=== PATIENT | male | born 1945 | race Caucasian/White ===

== ENCOUNTER 2018-12-02 11:57 | Outpatient (CLI) | payer OTHER | END 2018-12-02 11:58 | disposition home or self-care (01) | LOC: C.LAB 11:57 | DX: E11.65 Type 2 diabetes mellitus with hyperglycemia (principal); E55.9 Vitamin D deficiency, unspecified; E79.0 Hyperuricemia without signs of inflammatory arthritis and tophaceous disease; R53.83 Other fatigue; Z12.5 Encounter for screening for malignant neoplasm of prostate ==